=== PATIENT | female | born 1955 | race Caucasian/White ===

== ENCOUNTER → 2021-11-29 08:49 | Outpatient (CLI) | payer MEDICARE, OTHER, SELFPAY ==
--- NOTE | 2021-11-29 | DI.US.S_ITS ---
PROCEDURE: US THYROID INDICATIONS: THYROID NODULES FOLLOW UP TECHNIQUE: Real-time scanning was performed of the thyroid gland, with image documentation. COMPARISON: [facility], RG, US THYROID, 06/26/2014, 8:20. FINDINGS: Right: Thyroid lobe measures 5.2 x 1.8 x 1.5 cm, previously 4.4 x 1.6 x 1.5 cm. Homogeneous Left: Thyroid lobe measures 6.2 x 2.7 x 2.4 cm, previously 5.8 x 2.8 x 2.2 cm. Homogeneous. Isthmus: 2.5 mm thick. Nodule number: 1 Location: Right inferior Size: 0.8 x 0.7 x 0.7 cm, previously 1.1 x 0.8 x 0.9 cm. Composition: Predominantly solid Echogenicity: Isoechoic Shape: wider than tall. Margins: Smooth Echogenic foci: None Total points: 3 ACR TI-RADS category: 3 Nodule number: 2 Location: Left mid Size: 1.3 x 0.8 x 0.7 cm, previously 1.1 x 1.0 x 0.6 cm. Composition: Predominantly solid Echogenicity: Hypoechoic Shape: wider than tall. Margins: Smooth Echogenic foci: None Total points: 4 ACR TI-RADS category: 4 Nodule number: 3 Location: Left inferior thyroid, previously biopsied Size: 3.3 x 1.9 x 2.2 cm, previously 4.3 x 2.2 x 2.2 cm. Composition: Solid Echogenicity: Hypoechoic Shape: Taller than wide Margins: Smooth Echogenic foci: None Total points: 7 ACR TI-RADS category: 5, highly suspicious IMPRESSION: Stable thyroid nodules. Previously biopsied nodule in the left inferior thyroid is slightly smaller than 2014 ACR TI-RADS definitions and recommendations: TI-RADS 1 (benign): 0 points. FNA not needed. TI-RADS 2 (not suspicious): 2 points. FNA not needed. TI-RADS 3 (mildly suspicious): 3 points. * FNA if 2.5 cm or larger, follow up if 1.5 cm or larger (at 1, 3, and 5 years). TI-RADS 4 (moderately suspicious): 4-6 points. * FNA if 1.5 cm or larger, follow up if 1 cm or larger (at 1, 2, 3, and 5 years). TI-RADS 5 (highly suspicious): 7 points or more. * FNA if 1 cm or larger, follow up if 0.5 cm or larger (every year for 5 years). Approved by: Christopher Daniel M.D. on 12/02/2021 at 10:20
--- NOTE | 2021-11-29 09:32 | DI.ECHO.S_ITS ---
:Reason For Study: Dyspnea, Thyroid Nodule : :Ordering Physician: Julia : :Francis Performed By: Mikie Aleman : :Referring: JULIA WILEY : + + Interpretation Summary The left ventricle is normal in size and wall thickness. The ejection fraction is estimated to be 55-60%. Diastolic parameters suggest probable normal left ventricular diastolic function and normal filling pressures. The right ventricle is normal in size and function. The right ventricular systolic pressure is estimated to be at least 25 mmHg based on an estimated right atrial pressure of 3 mm Hg. No significant valvular disease. No prior studies available for comparison. Procedure: A two-dimensional transthoracic echocardiogram with color flow and Doppler was performed. There is no prior echocardiogram noted for this patient. Overall fair image quality with aquisition on apical window being technically difficult. The patient was in normal sinus rhythm during the exam. Left Ventricle: The left ventricle is normal in size and wall thickness. The ejection fraction is estimated to be 55-60%. There are no focal wall motion abnormalities. Diastolic parameters suggest probable normal left ventricular diastolic function and normal filling pressures. Right Ventricle: The right ventricle is normal in size and function. Atria: The left atrium is mildly dilated. The right atrium is mildly dilated. There is no Doppler evidence for an interatrial shunt. Mitral Valve: The mitral valve is normal. There is trace mitral regurgitation. Aortic Valve: The aortic valve is trileaflet. The aortic valve opens well. The aortic valve is slightly calcified. There is no hemodynamically significant valvular aortic stenosis. There is trace aortic regurgitation. Tricuspid Valve: The tricuspid valve is normal. There is trace tricuspid regurgitation. The right ventricular systolic pressure is estimated to be at least 25 mmHg based on an estimated right atrial pressure of 3 mm Hg. Pulmonic Valve: The pulmonic valve leaflets are thin and pliable; valve motion is normal. There is trace pulmonic regurgitation. Great Vessels: The aortic root is normal size. The ascending aorta is normal in size. The aortic arch is normal in size. The IVC is of normal diameter and collapses greater than 50% with a sniff. This suggests a low right atrial pressure of 3 mm Hg. Pericardium/ Pleura There is no pericardial effusion. There is an anterior echo-free space consistent with a fat pad. There is no pleural effusion. MMode/2D Measurements & Calculations LVIDd: 5.1 cm LVOT diam: 2.1 cm LVIDs: 3.2 cm Ao root diam: 2.6 cm FS: 38.2 % asc Aorta Diam: 2.9 cm IVSd: 0.91 cm LVPWd: 0.92 cm LV loza. diameter/BSA (cm/m^2): 2.4 LV sys. diameter/BSA (cm/m^2): 1.5 LA A2 area: 20.6 cm2 RA long axis: 5.5 cm LA A4 area: 21.6 cm2 RA area: 18.0 cm2 LA length (vol): 5.6 cm RA vol: 50.1 ml LA vol: 66.8 ml RA : 23.5 ml/m2 LA vol index: 31.3 ml/m2 TAPSE: 2.1 cm Doppler Measurements & Calculations Ao V2 max: 136.7 cm/sec LVOT Max Jayce: 87.0 cm/sec Ao V2 mean: 100.0 cm/sec LV V1 max P.0 mmHg Ao max P.5 mmHg LV V1 VTI: 19.0 cm Ao mean P.3 mmHg SEBASTIAN(I,D): 2.2 cm2 Ao V2 VTI: 30.1 cm SEBASTIAN(V,D): 2.2 cm2 sev ratio: 0.63 SEBASTIAN indexed to BSA (cm^2/m^2): 1.0 MV E max jayce: 68.0 cm/sec TR max jayce: 234.1 cm/sec MV A max jayce: 75.5 cm/sec TR max P.9 mmHg MV E/A: 0.90 PA V2 max: 63.6 cm/sec Med Peak E' Jayce: 8.3 cm/sec PA V2 mean: 49.8 cm/sec E/E' med: 8.2 PA mean P.0 mmHg Lat Peak E' Jayce: 11.1 cm/sec PA pr(Accel): 27.6 mmHg E/E' lat: 6.2 E/e' average: 7.2 MV dec time: 0.15 sec SV(LVOT): 65.9 ml Reading Physician:TARIQ
== END ==
PROVIDERS: PCP Internal Medicine; Referring Provider Internal Medicine; Visit Provider Internal Medicine
DX: R06.00 Dyspnea, unspecified (principal); E04.2 Nontoxic multinodular goiter
CPT/HCPCS: 76536; 93306

== ENCOUNTER → 2021-12-14 12:55 | Outpatient (CLI) | payer MEDICARE, OTHER, SELFPAY ==
--- NOTE | 2021-12-14 | DI.MRI.S_ITS ---
PROCEDURE: MR ANKLE LT WO CON INDICATIONS: TEAR OF PERONAEAL TENDON,LEFT, SUBSEQ ENCT TECHNIQUE: Noncontrast sagittal T1 spin echo and T2 fast spin echo with fat saturation, axial proton density fast spin echo and T2 fast spin echo with fat saturation, coronal T1 spin echo and T2 fast spin echo with fat saturation through the ankle/hindfoot. COMPARISON: [facility], CR, XR FOOT 3 VIEWS WEIGHT BEARING LEFT, 12/11/2021, 13:58. FINDINGS: Image quality: Excellent. Bones and joints: Moderate osteoarthritic changes are noted throughout midfoot and hindfoot joints particularly involving calcaneocuboid joint and articulation between lateral cuneiform and cuboid. Marrow edema is seen involving inferior and lateral portion of navicular bone, superior portion of cuboid and distal calcaneus without discrete fracture line. No osteochondral injuries of the talar dome. Small amount of tibiotalar and subtalar joint fluid is seen, no gross loose bodies. Medial structures: The posterior tibialis, flexor digitorum longus, and flexor hallucis longus tendons are intact. The posterior tibial neurovascular bundle appears normal within the tarsal tunnel, without extrinsic mass effect. The deep layer (anterior and posterior tibiotalar ligaments) and superficial layer (tibionavicular, tibiospring, and tibiocalcaneal ligaments) of the deltoid ligament appear normal. The spring ligament components (superomedial calcaneonavicular, medioplantar oblique calcaneonavicular, and inferoplantar longitudinal ligaments) are intact. Lateral structures: The anterior talofibular, calcaneofibular, and posterior talofibular ligaments appear attenuated with intrasubstance T2 hyperintense signal suggestive of sprain/low-grade partial-thickness tear.. More superiorly, the anterior and posterior tibiofibular ligaments appear intact, as is the intermalleolar ligament. The tibiofibular syndesmosis is normal in width at 2 mm or less. There is moderate grade partial-thickness tear involving peroneus brevis tendon at the level of mid to distal calcaneus extending to its insertion of 5th metatarsal base. Moderate tendinosis and low-grade intrasubstance partial-thickness tear involving peroneus longus tendon at the level of calcaneus/calcaneocuboid joint is also seen. Adjacent bony peroneal tubercle and retrotrochlear prominence are normal in size. The sinus tarsi demonstrates normal fatty signal, without edema, fibrosis, or cyst formation. Visualized sinus tarsi components (cervical ligament, interosseous talocalcaneal ligament, roots of the inferior extensor retinaculum) appear normal. The calcaneonavicular and calcaneocuboid components of the bifurcate ligament appear intact. The dorsal calcaneocuboid ligament appears intact. Anterior structures: The tibialis anterior, extensor hallucis longus, and extensor digitorum longus tendons appear intact. The dorsal talonavicular ligament appears intact. Posterior and plantar structures: Achilles tendon is intact. Medial and lateral bands of the plantar fascia are of normal thickness. No abductor digiti quinti muscle atrophy to suggest Blandon neuropathy. IMPRESSION: 1. Tendinosis and moderate grade partial-thickness tear involving peroneus brevis and longus tendons as above. No definite full-thickness tendon rupture. 2. Flexor and extensor tendons are intact. Achilles tendon is intact. 3. Sprain/low-grade intrasubstance partial-thickness tear involving anterior and posterior talofibular ligaments and calcaneofibular ligament. Deltoid ligament and spring ligament complex is intact. 4. Moderate midfoot and hindfoot joint osteoarthritic changes as described above. No acute fracture or dislocation. No osteochondral injury of talar dome. Dictated by: Nikolas Gray M.D. on 12/16/2021 at 8:24 Approved by: Nikolas Gray M.D. on 12/16/2021 at 8:37
== END ==
PROVIDERS: PCP Internal Medicine; Referring Provider Orthopaedic Surgery Foot and Ankle Surgery; Visit Provider Orthopaedic Surgery Foot and Ankle Surgery
DX: S93.492A Sprain of other ligament of left ankle, initial encounter (principal); S93.412A Sprain of calcaneofibular ligament of left ankle, initial encounter; S86.312D Strain of muscle(s) and tendon(s) of peroneal muscle group at lower leg level, left leg, subsequent encounter; X58.XXXD Exposure to other specified factors, subsequent encounter
CPT/HCPCS: 73721

== ENCOUNTER → 2023-11-20 | Outpatient (CLI) | payer MEDICARE, OTHER, SELFPAY ==
--- NOTE | 2023-11-20 | DI.US.S_ITS ---
PROCEDURE: US THYROID INDICATIONS: Nontoxic multinodular goiter TECHNIQUE: Real-time scanning was performed of the thyroid gland, with image documentation. COMPARISON: [facility], US, US THYROID, 11/29/2021, 10:12. FINDINGS: Right: Thyroid lobe measures 5.3 x 1.7 x 1.6 cm, and is homogeneous in echotexture. Left: Thyroid lobe measures 6.1 x 2.2 x 2.4 cm, and is homogenous in echotexture. Isthmus: 0.23 cm thick. Nodule number: 1 Location: Right inferior Size: 1.1 x 0.7 x 0.8 cm, previously 0.8 x 0.7 x 0.7 cm. Composition: Solid Echogenicity: Hyperechoic Shape: wider than tall. Margins: Smooth Echogenic foci: None Total points: 3 ACR TI-RADS category: 3 Nodule number: 2 Location: Left mid Size: 1.2 x 0.9 x 0.8 cm, previously 1.3 x 0.8 x 0.7 cm cm. Composition: Solid Echogenicity: Hypoechoic Shape: wider than tall. Margins: Smooth Echogenic foci: Punctate Total points: 7 ACR TI-RADS category: 5 Nodule number: 3 Location: Left inferior Size: 3.7 x 1.8 x 2.2 cm, previously 3.3 x 1.9 x 2.2 cm. Composition: Solid Echogenicity: Hyperechoic Shape: wider than tall. Margins: Smooth Echogenic foci: Macrocalcification Total points: 5 ACR TI-RADS category: 4 Nodule number: 4 Location: Right mid Size: 0.8 x 0.5 x 0.5 cm, not observed previously. Composition: Solid Echogenicity: Hypoechoic Shape: wider than tall. Margins: Smooth Echogenic foci: None Total points: 4 ACR TI-RADS category: 4 IMPRESSION: Best practice guidelines suggest FNA nodule 2.Normal examination. Nodule 3 has enlarged slightly. Although previously FNA in 2017, consider repeat FNA given imaging characteristics ACR TI-RADS definitions and recommendations: TI-RADS 1 (benign): 0 points. FNA not needed. TI-RADS 2 (not suspicious): 2 points. FNA not needed. TI-RADS 3 (mildly suspicious): 3 points. * FNA if 2.5 cm or larger, follow up if 1.5 cm or larger (at 1, 3, and 5 years). TI-RADS 4 (moderately suspicious): 4-6 points. * FNA if 1.5 cm or larger, follow up if 1 cm or larger (at 1, 2, 3, and 5 years). TI-RADS 5 (highly suspicious): 7 points or more. * FNA if 1 cm or larger, follow up if 0.5 cm or larger (every year for 5 years). Dictated by: Christopher Daniel M.D. on 11/20/2023 at 17:31 Approved by: Christopher Daniel M.D. on 11/20/2023 at 19:45
--- NOTE | 2023-11-20 14:28 | DI.MG.S_ITS ---
Patient Name: IMMANUEL UMAÑA date: 1955 Sex: F Attending Physician: Francis Indications: Date: 11/20/2023 18:17 At the request of: JULIA WILEY Procedure: MM screening mammo BI BILATERAL DIGITAL SCREENING MAMMOGRAM 3D/2D WITH CAD: 11/20/2023 CLINICAL: Routine screening. Personal history of right breast cancer. Family history of breast cancer. Comparison is made to exams dated: 06/20/2022 mammogram, 05/15/2021 mammogram, and 05/08/2020 mammogram - [facility]. There are scattered areas of fibroglandular density in both breasts (category b / 25%-50% glandular tissue). Current study was also evaluated with a Computer Aided Detection (CAD) system. There are benign post operative findings in the right breast. No significant masses, calcifications, or other findings are seen in either breast. There has been no significant interval change. IMPRESSION: BENIGN There is no mammographic evidence of malignancy. A 1 year screening mammogram is recommended. This exam was interpreted at Station ID: [id number]. NOTE: For mammograms, a report in lay terms will be sent to the patient. Approximately 15% of breast malignancies will not be visualized mammographically. In the management of a palpable breast mass, a negative mammogram must not discourage biopsy of a clinically suspicious lesion. Electronically Signed By: Delfin Schultz M.D. Continued Report - Page 2 of 2 Patient Name: IMMANUEL UMAÑA date: 1955 Sex: F Attending Physician: Francis Indications: Date: 11/20/2023 18:17 At the request of: JULIA WILEY Procedure: MM screening mammo BI aty/penrad:11/20/2023 18:17:55 letter sent: Normal Exam ACR BI-RADS Category 2: Benign Finding(s) 3342F
== END ==
LOC: MAMMO 13:33
PROVIDERS: PCP Internal Medicine; Referring Provider Internal Medicine; Visit Provider Internal Medicine
DX: Z12.31 Encounter for screening mammogram for malignant neoplasm of breast (principal); Z85.3 Personal history of malignant neoplasm of breast; Z80.3 Family history of malignant neoplasm of breast; R92.323 Mammographic fibroglandular density, bilateral breasts; E04.2 Nontoxic multinodular goiter
CPT/HCPCS: 76536; 77063; 77067

== ENCOUNTER → 2023-12-09 12:55 | Outpatient (CLI) | payer MEDICARE, OTHER, SELFPAY ==
--- NOTE | 2023-12-09 | PATH_ITS ---
Note [facility] Accession Number: [id number] TESTS RESULT FLAG UNITS REF RANGE LAB Clinician Provided Cytology Information No. of containers..01 Other (Miscellaneous) No. of containers..02 Previously Prepared Cytology Slide Source: LEFT MID THYROID NODULE #2 DIAGNOSIS: 01 LEFT MID THYROID NODULE #2, FINE NEEDLE ASPIRATION. NEGATIVE FOR MALIGNANT CELLS. ADEQUATE FOR EVALUATION. FOLLICULAR GROUPS ARE PRESENT. BENIGN FOLLICULAR (GOITEROUS) NODULE (BETHESDA CATEGORY II), SEE COMMENT. COMMENT: MICROSCOPIC EXAMINATION REVEALS A MILDLY CELLULAR ASPIRATE, COMPOSED OF COLLOID, FOLLICULAR GROUPS WITHOUT SIGNIFICANT CYTOLOGIC OR ARCHITECTURAL ATYPIA, AND BACKGROUND MACROPHAGES. THESE FINDINGS SUPPORT A BENIGN FOLLICULAR (GOITEROUS) NODULE. CORRELATION WITH CLINICAL AND RADIOGRAPHIC FINDINGS IS RECOMMENDED. ACCORDING TO THE B[place]DA REPORTING SYSTEM FOR THYROID CYTOPATHOLOGY, THE RISK OF MALIGNANCY IN THE CATEGORY BENIGN-CATEGORY II IS 0-3%; THEREFORE RECOMMEND CONTINUED ULTRASOUND SURVEILLANCE WITH REPEAT FNA IF THE NODULE SIGNIFICANTLY INCREASES IN SIZE. THIS INTERPRETATION INCLUDES EVALUATION OF A CELL BLOCK. Pathologist ICD10: E04.2 Signed out by: Elaine Barragan MD, Pathologist NPI- [id number] Performed by: Elaine Hancock, Chief Mechanical Engineer ([facility]) Gross description: 30 CC, RED, HAZY RECIEVED: IN CYTOLYT WITH 6 ALCOHOL FIXED AND 6 QUICK STAINED SLIDES ALSO 1 RNA VIAL WILL ON 08-14-2025.VO /VDU 12/10/2023 0657 Local FLAG LEGEND: L-Low Normal,H-High Normal,LL-Alert Low,HH-Alert High <-Panic Low,>-Panic High,A-Abnormal,AA-Critical Abnormal Performed at: 01 =[facility] [address] [place] [address] [address], [place] [address] Sachin Lucas MD, Performed at: 01 [facility] [address] [place] [address] [address], [place], [place] [id number] MD Sachin Lucas MD Phone: [phone]
--- NOTE | 2023-12-09 12:57 | DI.US.S_ITS ---
PROCEDURE: US FINE NEEDLE ASPIRATION INDICATIONS: MULTIPLE THYROID NODULES TECHNIQUE: The indications, alternatives, benefits, risks, and complications of the procedure were explained to the patient. Written informed consent was obtained and placed in the chart. The thyroid region was examined sonographically and a site was chosen for ultrasound guided percutaneous sampling. The skin was prepared and draped in the usual fashion, and anesthetized with 1% lidocaine infiltrated from the skin down to the thyroid gland. Multiple passes were then performed, with contents emptied into an appropriate pathology specimen container. A bandage was applied to the area of access at completion of the study. COMPARISON: None. FINDINGS: Location(s) of lesion(s) sampled: Left medial midpole [place]: 25 gauge hypodermic needles. Number of passes: 6 Medications: 1% lidocaine for local anaesthesia. Complications: None. IMPRESSION: Successful ultrasound-guided thyroid nodule fine needle aspiration, with cytology results pending. Please see chart below for management recommendations based on cytology results. Note: The left inferior pole nodule was not sampled on today's examination, as there has not been 50% increase in growth since 2021, which does not warrant re-biopsy. [facility] ReportingRecommendationsNon-diagnostic* Repeat US-guided FNA, with on-site cytology evaluation if possible. * Repeated non-diagnostic nodules without high suspicion US features: close observation vs surgical consult. * Consider surgery if nodule has high suspicion US features, grows >20% in 2 dimensions on followup, or patient has clinical risk factors for malignancy. Benign* If nodule has high suspicion US features: repeat US and FNA within 12 months. * If nodule has low to intermediate suspicion US features: repeat US at 12-24 months. If nodule grows (20% increase in at least 2 dimensions, with minimal increase of 2 mm or >50% change in volume), or development of new suspicious US features, then repeat FNA or continue followup. * If nodule has very low suspicion US features: followup US at >24 months. Atypia of undetermined significance, follicular lesion of undetermined significanceRepeat FNA, molecular testing, followup US, or surgical consult.Follicular neoplasm, suspicious for follicular neoplasmSurgical consult; also consider molecular testing. Suspicious for malignancySurgical consult.MalignantSurgical consult. Dictated by: Kamlesh Baker M.D. on 12/09/2023 at 15:30 Approved by: Kamlesh Baker M.D. on 12/09/2023 at 15:30
== END ==
PROVIDERS: PCP Internal Medicine; Referring Provider Internal Medicine; Visit Provider Internal Medicine
DX: E04.2 Nontoxic multinodular goiter (principal)
CPT/HCPCS: 10005

== ENCOUNTER → 2024-11-23 15:33 | Outpatient (CLI) | payer MEDICARE, OTHER, SELFPAY ==
--- NOTE | 2024-11-23 | DI.MG.S_ITS ---
UNILATERAL LEFT DIGITAL SCREENING MAMMOGRAM 3D/2D WITH CAD: 11/23/2024 CLINICAL: Routine screening. Personal history of right breast cancer. Comparison is made to exams dated: 11/20/2023 mammogram - [facility], 06/20/2022 mammogram, and 05/15/2021 mammogram - [facility]. There are scattered areas of fibroglandular density (category b / 25%-50% glandular tissue). Current study was also evaluated with a Computer Aided Detection (CAD) system. There is a possible developing oval focal asymmetry in the left breast at 6 o'clock anterior depth. No other significant masses or calcifications are seen in the breast. IMPRESSION: INCOMPLETE: NEED ADDITIONAL IMAGING EVALUATION The possible developing oval focal asymmetry in the left breast is indeterminate. Additional views with possible ultrasound are recommended. This exam was interpreted at Station ID: [id number]. NOTE: For mammograms, a report in lay terms will be sent to the patient. Approximately 15% of breast malignancies will not be visualized mammographically. In the management of a palpable breast mass, a negative mammogram must not discourage biopsy of a clinically suspicious lesion. Electronically Signed By: Delfin Schultz M.D. aty/:11/24/2024 07:48:42 letter sent: Additional Imaging Needed ACR BI-RADS Category 0: Incomplete: Need Additional Imaging Evaluation
== END ==
PROVIDERS: PCP Internal Medicine; Referring Provider Internal Medicine; Visit Provider Internal Medicine
DX: Z12.31 Encounter for screening mammogram for malignant neoplasm of breast (principal); Z85.3 Personal history of malignant neoplasm of breast
CPT/HCPCS: 77063; 77067

== ENCOUNTER → 2024-12-14 13:24 | Outpatient (CLI) | payer MEDICARE, OTHER, SELFPAY ==
--- NOTE | 2024-12-14 13:26 | DI.US.S_ITS ---
LIMITED ULTRASOUND OF LEFT BREAST: 12/14/2024 CLINICAL: Patient returns today to evaluate a focal asymmetry in the left breast. Comparison is made to exams dated: 12/14/2024 mammogram, 11/23/2024 mammogram, 11/20/2023 mammogram - [facility], 06/20/2022 mammogram, 05/15/2021 mammogram, and 05/08/2020 mammogram - [facility]. Color flow and real-time ultrasound of the left breast 6 o'clock region were performed. There is a benign 0.5 cm simple cyst in the left breast at 6 o'clock, 2 cm from the nipple. This correlates with mammography findings. IMPRESSION: BENIGN Left breast 0.5 cm simple cyst at 6 o'clock position is benign. No mammographic or sonographic evidence of malignancy. A 1 year screening mammogram is recommended. Findings and recommendations were conveyed to the patient during today's evaluation. This exam was interpreted at Station ID: [id number]. Electronically Signed By: Delilah Lisa M.D., Ph.D. eb/:12/14/2024 14:36:31 letter sent: Normal Exam ACR BI-RADS Category 2: Benign
--- NOTE | 2024-12-14 13:26 | DI.MG.S_ITS ---
UNILATERAL LEFT DIGITAL DIAGNOSTIC MAMMOGRAM 3D/2D: 12/14/2024 CLINICAL: Additional evaluation requested from prior study. Comparison is made to exams dated: 11/23/2024 mammogram, 11/20/2023 mammogram - [facility], and 06/20/2022 mammogram - [facility]. There are scattered areas of fibroglandular density (category b / 25%-50% glandular tissue). There is a 0.5 cm oval mass with a circumscribed margin in the left breast at 6 o'clock anterior depth. This is seen in additional views. No other significant masses or calcifications are seen in the breast. IMPRESSION: INCOMPLETE: NEED ADDITIONAL IMAGING EVALUATION The 0.5 cm oval mass in the left breast is indeterminate. An ultrasound is recommended for further evaluation and is scheduled to immediately follow this examination. This exam was interpreted at Station ID: [id number]. NOTE: For mammograms, a report in lay terms will be sent to the patient. Approximately 15% of breast malignancies will not be visualized mammographically. In the management of a palpable breast mass, a negative mammogram must not discourage biopsy of a clinically suspicious lesion. Electronically Signed By: Delilah Lisa M.D., Ph.D. eb/:12/14/2024 14:34:21 letter sent: Additional Imaging Needed ACR BI-RADS Category 0: Incomplete: Need Additional Imaging Evaluation
== END ==
PROVIDERS: PCP Internal Medicine; Referring Provider Internal Medicine; Visit Provider Internal Medicine
DX: R92.8 Other abnormal and inconclusive findings on diagnostic imaging of breast (principal); N60.02 Solitary cyst of left breast
CPT/HCPCS: 76642; 77065; G0279